=== PATIENT | male | born 1990 | race Caucasian/White ===

== ENCOUNTER 2017-11-12 16:42 | Emergency (ER) | payer OTHER ==
[2017-11-12] MEDS: IBUPROFEN 800 MG TAB PO (17:15)
[2017-11-12] MEDS: ACETAMINOPHEN 325 MG TAB PO (18:14)
== END 2017-11-12 18:24 | disposition home or self-care (01) ==
LOC: M ED 16:42
DX: B34.9 Viral infection, unspecified (principal); Z88.0 Allergy status to penicillin
CPT/HCPCS: 87804

== ENCOUNTER 2018-07-12 20:00 | Emergency (ER) | payer OTHER ==
[2018-07-12 21:36] LABS: APPEARANCE, URINE CLEAR (CLEAR); BACTERIA, URINE AUTO NEGATIVE (NEGATIVE); BILIRUBIN, URINE AUTO NEGATIVE (NEGATIVE); BLOOD, URINE BLOOD NEGATIVE (NEGATIVE); COLOR, URINE YELLOW (YELLOW); GLUCOSE, URINE (UA) AUTO NEGATIVE (NEGATIVE); KETONE, URINE AUTO NEGATIVE (NEGATIVE); LEUKOCYTE ESTERASE, URINE AUTO NEGATIVE (NEGATIVE); MUCUS, URINE SMALL (NEGATIVE); NITRITE, URINE AUTO NEGATIVE (NEGATIVE); PROTEIN, URINE AUTO NEGATIVE (NEGATIVE); RBC, URINE AUTO 3 /HPF (0-3); SQUAMOUS EPITHELIAL CELL UR AU 0 /HPF (0-6); UROBILINOGEN, URINE AUTO 0.2 mg/dL (0.0-2.0); WBC, URINE AUTO 1 /HPF (0-3)
[2018-07-12] MEDS: NAPROXEN 250 MG TAB PO (22:32)
== END 2018-07-12 22:42 | disposition home or self-care (01) ==
LOC: M ED 20:00
DX: S70.01XA Contusion of right hip, initial encounter (principal); S74.91XA Injury of unspecified nerve at hip and thigh level, right leg, initial encounter; M54.10 Radiculopathy, site unspecified; W19.XXXA Unspecified fall, initial encounter; Y92.9 Unspecified place or not applicable; Y93.9 Activity, unspecified; Y99.0 Civilian activity done for income or pay; Z88.0 Allergy status to penicillin
CPT/HCPCS: 76870